=== PATIENT | female | born 1980 | race Caucasian/White ===

== ENCOUNTER → 2018-03-17 | Day surgery (SDC) | payer OTHER ==
[2018-03-13 08:14] VITALS: Ht 172.7 cm; Wt 96.4 kg
[~2018-03-17] VITALS: Ht 172.7 cm; Wt 96.4 kg
[~2018-03-17] MED LIST: LEVO175T3 PO
== END | disposition home or self-care (01) ==
LOC: C.PAT 11:25 → EDSTATUS 12:30
DX: R49.0 Dysphonia (principal); Z53.9 Procedure and treatment not carried out, unspecified reason